=== PATIENT | male | born 1975 | race Caucasian/White ===

== ENCOUNTER 2018-08-09 10:48 | Emergency (ER) | payer MEDICARE, MEDICAID ==
[~2018-08-09] VITALS: Ht 182.9 cm; Wt 109.1 kg
[~2018-08-09 10:48] MED LIST: AMLO5TAB PO; CEPH250T PO; CETI10TA15 PO; CLON0.2T PO; HYDR2TAB28 PO; LOSA25TA96 PO; MORP60TA32 PO; OMEP20TA5 PO; PRAV80TA3 PO; PROM25TA14 PO; PROP40TA72 PO; PROP80TA4 PO
[2018-08-09] MEDS ORDERED: ondansetron/PF 4mg/2ml inj IV ONE (12:00)
[2018-08-09] MEDS ORDERED: morphine 4 MG/ML inj SYRINge IV ONE ×2 (12:00→15:25)
[2018-08-09] MEDS ORDERED: normal saline 1000ML IV soln IVB ONE ×2 (12:00→15:25)
[2018-08-09 12:17] LABS: BASOPHILS # (AUTO) 0.1 X10'3 (0-0.2); BASOPHILS % (AUTO) 0.4 % (0-1); EOSINOPHILS % (AUTO) 0.2 % (0-6); HEMATOCRIT 47.7 % (42.0-52.0); HEMOGLOBIN 16.5 g/dl (14.0-17.9); LYMPHOCYTES # (AUTO) 2.6 X10'3 (1.1-4.8); LYMPHOCYTES % (AUTO) 16.9 % (21-51); MEAN CORPUSCULAR HEMOGLOBIN 30.8 PG (27.0-31.0); MEAN CORPUSCULAR HGB CONC 34.6 g/dL (33.0-36.5); MEAN PLATELET VOLUME 11.4 FL (7.4-10.4); MONOCYTES # (AUTO) 0.7 X10'3 (0-0.9); MONOCYTES % (AUTO) 4.6 % (2-12); NEUTROPHILS # (AUTO) 11.9 X10'3 (1.8-7.7); NEUTROPHILS % (AUTO) 77.9 % (42-75); PLATELET COUNT 214 X10'3 (140-440); RED BLOOD COUNT 5.36 X10'6 (4.70-6.10); RED CELL DISTRIBUTION WIDTH 13.6 % (11.5-14.5); WHITE BLOOD COUNT 15.3 X10'3 (4.5-11.0)
[2018-08-09 12:24] LABS: ALANINE AMINOTRANSFERASE 44 U/L (12-78); ALBUMIN 4.6 G/DL (3.4-5.0); ALBUMIN/GLOBULIN RATIO 1.2 (1.1-1.5); ALKALINE PHOSPHATASE 36 IU/L (46-116); ANION GAP 13 (8-16); ASPARTATE AMINO TRANSFERASE 25 U/L (10-37); BILIRUBIN,TOTAL 0.6 MG/DL (0.1-1.0); BLOOD UREA NITROGEN 21 MG/DL (7-18); BUN/CREATININE RATIO 16.9 (5.4-32.0); CALCIUM 9.2 MG/DL (8.5-10.1); CHLORIDE 101 MMOL/L (99-107); CREATININE 1.24 MG/DL (0.60-1.10); GLUCOSE 135 MG/DL (70-104); SODIUM 138 MMOL/L (135-145); TOTAL CARBON DIOXIDE 24.5 MMOL/L (24-32); TOTAL PROTEIN 8.3 G/DL (6.4-8.2); eGFR 64 ML/MIN
[2018-08-09 12:37] LABS: LARGE PLATELETS FEW; PLATELET ESTIMATE NORMAL
[2018-08-09 13:03] LABS: LIPASE 4718 U/L (73-393)
[2018-08-09] MEDS ORDERED: iohexol 300mg/ml 100ml inj. ONE (13:19)
[2018-08-09 14:30] VITALS: BP 153/83
[2018-08-09] MEDS ORDERED: HYDR-4353 PO (16:37)
[2018-08-09] MEDS ORDERED: ONDA8TAB6 PO (16:37)
== END 2018-08-09 16:57 | disposition home or self-care (01) ==
LOC: ER 10:49
DX: K85.90 Acute pancreatitis without necrosis or infection, unspecified (principal); R11.2 Nausea with vomiting, unspecified; R91.1 Solitary pulmonary nodule; G43.909 Migraine, unspecified, not intractable, without status migrainosus; E78.00 Pure hypercholesterolemia, unspecified; I10 Essential (primary) hypertension; G89.29 Other chronic pain; Z88.8 Allergy status to other drugs, medicaments and biological substances; Z79.899 Other long term (current) drug therapy
CPT/HCPCS: 36415; 74177; 80053; 83690; 85025; 96361; 96374; 96375; 96376; 99284; J2270; J2405; J7030; Q9967

== ENCOUNTER 2019-04-21 14:10 | Emergency (ER) | payer MEDICARE, MEDICAID ==
[~2019-04-21] VITALS: Ht 182.9 cm; Wt 107.0 kg
[~2019-04-21 14:10] MED LIST changes: -CEPH250T PO; +ONDA8TAB6 PO
[2019-04-21 15:16] LABS: BASOPHILS # (AUTO) 0.1 X10'3 (0-0.2); BASOPHILS % (AUTO) 0.7 % (0-1); EOSINOPHILS # (AUTO) 0.1 X10'3 (0-0.9); EOSINOPHILS % (AUTO) 0.5 % (0-6); HEMATOCRIT 47.9 % (42.0-52.0); HEMOGLOBIN 16.6 g/dl (14.0-17.9); LYMPHOCYTES # (AUTO) 2.5 X10'3 (1.1-4.8); LYMPHOCYTES % (AUTO) 18.8 % (21-51); MEAN CORPUSCULAR HEMOGLOBIN 30.9 PG (27.0-31.0); MEAN CORPUSCULAR HGB CONC 34.7 g/dL (33.0-36.5); MEAN PLATELET VOLUME 10.8 FL (7.4-10.4); MONOCYTES # (AUTO) 1.3 X10'3 (0-0.9); MONOCYTES % (AUTO) 9.3 % (2-12); NEUTROPHILS # (AUTO) 9.5 X10'3 (1.8-7.7); NEUTROPHILS % (AUTO) 70.7 % (42-75); PLATELET COUNT 253 X10'3 (140-440); RED BLOOD COUNT 5.38 X10'6 (4.70-6.10); RED CELL DISTRIBUTION WIDTH 12.6 % (11.5-14.5); WHITE BLOOD COUNT 13.4 X10'3 (4.5-11.0)
[2019-04-21 15:24] LABS: CLARITY,URINE SLIGHTLY CLOUDY (Clear); COLOR,URINE YELLOW (Yellow); GLUCOSE, URINE NEGATIVE (Neg); KETONES,URINE 15 mg/dl (Neg); LEUKOCYTE ESTERASE ,URINE NEGATIVE (Neg); NITRITES, URINE NEGATIVE (Neg); OCCULT BLOOD,URINE NEGATIVE (Neg); PROTEIN,URINE NEGATIVE (Neg); UA COLLECTION TYPE CLN CATCH MIDSTREAM
[2019-04-21 15:27] LABS: ALANINE AMINOTRANSFERASE 20 U/L (12-78); ALBUMIN 4.2 G/DL (3.4-5.0); ALBUMIN/GLOBULIN RATIO 1.1 (1.1-1.5); ALKALINE PHOSPHATASE 47 IU/L (46-116); AMYLASE 45 U/L (25-115); ANION GAP 7 (8-16); ASPARTATE AMINO TRANSFERASE 16 U/L (10-37); BILIRUBIN,TOTAL 0.7 MG/DL (0.1-1.0); BLOOD UREA NITROGEN 17 MG/DL (7-18); BUN/CREATININE RATIO 11.3 (5.4-32.0); CALCIUM 9.7 MG/DL (8.5-10.1); CHLORIDE 102 MMOL/L (99-107); CREATININE 1.51 MG/DL (0.60-1.10); GLUCOSE 112 MG/DL (70-104); LIPASE 163 U/L (73-393); POTASSIUM 4.7 MMOL/L (3.5-5.1); SODIUM 135 MMOL/L (135-145); TOTAL CARBON DIOXIDE 25.9 MMOL/L (24-32); eGFR 51 ML/MIN
[2019-04-21 15:29] LABS: MUCUS STRANDS MODERATE /LPF (Neg); SQUAMOUS EPITHELIAL CELL,UR FEW /LPF (FEW)
[2019-04-21 15:30] LABS: BACTERIA,URINE 1+ /HPF (Neg); RBC,URINE 0-2 /HPF (0-2); WBC,URINE 0-4 /HPF (0-4)
[2019-04-21 16:36] LABS: LARGE PLATELETS FEW; PLATELET ESTIMATE NORMAL
[2019-04-21] MEDS ORDERED: normal saline 1000ML IV soln IVB ONE (17:20)
[2019-04-21] MEDS ORDERED: morphine 4 MG/ML inj SYRINge IV PRN (17:20)
[2019-04-21] MEDS ORDERED: ondansetron/PF 4mg/2ml inj IV ONE (17:20)
[2019-04-21 18:31] VITALS: BP 114/64
[2019-04-21] MEDS ORDERED: PANT-47 PO (19:05)
== END 2019-04-21 19:14 | disposition home or self-care (01) ==
LOC: ER 14:11
DX: R10.13 Epigastric pain (principal); R10.11 Right upper quadrant pain; R11.2 Nausea with vomiting, unspecified; E78.00 Pure hypercholesterolemia, unspecified; I10 Essential (primary) hypertension; G89.29 Other chronic pain; Z88.8 Allergy status to other drugs, medicaments and biological substances; Z79.899 Other long term (current) drug therapy
CPT/HCPCS: 36415; 76700; 80053; 81001; 82150; 83690; 85025; 96361; 96374; 96375; 99284; J2270; J2405; J7030

== ENCOUNTER 2019-07-28 10:24 | Emergency (ER) | payer MEDICARE, MEDICAID ==
[~2019-07-28] VITALS: Ht 185.4 cm; Wt 104.5 kg
[~2019-07-28 10:24] MED LIST changes: +PANT-47 PO
[2019-07-28] MEDS ORDERED: CLIN150C8 PO (11:50)
[2019-07-28 12:32] VITALS: BP 96/60
== END 2019-07-28 12:34 | disposition home or self-care (01) ==
LOC: ER 10:24
DX: J34.0 Abscess, furuncle and carbuncle of nose (principal); G43.909 Migraine, unspecified, not intractable, without status migrainosus; E78.00 Pure hypercholesterolemia, unspecified; I10 Essential (primary) hypertension; G89.29 Other chronic pain; Z88.8 Allergy status to other drugs, medicaments and biological substances; Z79.899 Other long term (current) drug therapy
CPT/HCPCS: 99283

== ENCOUNTER 2021-08-16 14:37 | Emergency (ER) | payer MEDICARE, MEDICAID ==
[~2021-08-16] VITALS: Ht 185.4 cm; Wt 104.5 kg
[~2021-08-16 14:37] MED LIST changes: +CLIN150C8 PO; +OMEP20TA43 PO; -OMEP20TA5 PO
[2021-08-16 14:59] VITALS: BP 172/111
[2021-08-16] MEDS ORDERED: TETR20SP PO (16:22)
== END 2021-08-16 16:33 | disposition home or self-care (01) ==
LOC: ER 14:38
DX: K12.0 Recurrent oral aphthae (principal); J02.9 Acute pharyngitis, unspecified; G43.909 Migraine, unspecified, not intractable, without status migrainosus; E78.00 Pure hypercholesterolemia, unspecified; I10 Essential (primary) hypertension; G89.29 Other chronic pain; Z87.19 Personal history of other diseases of the digestive system; Z88.8 Allergy status to other drugs, medicaments and biological substances; Z79.899 Other long term (current) drug therapy; Z79.2 Long term (current) use of antibiotics
CPT/HCPCS: 87081; 87880; 99283

== ENCOUNTER 2021-12-01 18:59 | Inpatient (IN) | payer MEDICARE, MEDICAID ==
[~2021-12-01] VITALS: Ht 182.9 cm; Wt 100.0 kg
[~2021-12-01 18:59] MED LIST changes: +TETR20SP PO
[2021-12-01] MEDS ORDERED: ringers solution, lacted 1,000 ML IV ONE (20:00)
[2021-12-01 20:16] LABS: BASOPHILS # (AUTO) 0.1 X10'3 (0-0.2); BASOPHILS % (AUTO) 0.7 % (0-1); EOSINOPHILS # (AUTO) 0.1 X10'3 (0-0.9); LYMPHOCYTES % (AUTO) 27.8 % (21-51)
[2021-12-01 20:17] LABS: EOSINOPHILS % (AUTO) 1.2 % (0-6); HEMATOCRIT 44.5 % (42.0-52.0); HEMOGLOBIN 14.9 g/dl (14.0-17.9); LYMPHOCYTES # (AUTO) 3.1 X10'3 (1.1-4.8); MEAN CORPUSCULAR HEMOGLOBIN 28.9 PG (27.0-31.0); MEAN CORPUSCULAR HGB CONC 33.6 g/dL (33.0-36.5); MEAN CORPUSCULAR VOLUME 86.1 FL (78-98); MEAN PLATELET VOLUME 9.8 FL (7.4-10.4); MONOCYTES # (AUTO) 1.2 X10'3 (0-0.9); MONOCYTES % (AUTO) 10.9 % (2-12); NEUTROPHILS # (AUTO) 6.5 X10'3 (1.8-7.7); NEUTROPHILS % (AUTO) 59.4 % (42-75); PLATELET COUNT 187 X10'3 (140-440); RED BLOOD COUNT 5.17 X10'6 (4.70-6.10)
[2021-12-01 20:33] LABS: ALANINE AMINOTRANSFERASE 33 U/L (12-78); ALBUMIN 4.2 G/DL (3.4-5.0); ALBUMIN/GLOBULIN RATIO 1.2 (1.1-1.5); ALKALINE PHOSPHATASE 47 IU/L (46-116); ANION GAP 12 (8-16); ASPARTATE AMINO TRANSFERASE 26 U/L (10-37); BILIRUBIN,TOTAL 0.5 MG/DL (0.1-1.0); BLOOD UREA NITROGEN 21 MG/DL (7-18); BUN/CREATININE RATIO 14.5 (5.4-32.0); CALCIUM 9.3 MG/DL (8.5-10.1); CHLORIDE 101 MMOL/L (99-107); CREATININE 1.45 MG/DL (0.60-1.10); GLUCOSE 105 MG/DL (70-104); MAGNESIUM 2.2 MG/DL (1.5-2.4); SODIUM 139 MMOL/L (135-145); TOTAL CARBON DIOXIDE 26.5 MMOL/L (24-32); TOTAL PROTEIN 7.8 G/DL (6.4-8.2); eGFR 53 ML/MIN
[2021-12-01 20:38] LABS: ETHANOL < 0.010 GM/DL (0.0-0.010)
[2021-12-01 20:47] LABS: CLARITY,URINE CLEAR (Clear); COLOR,URINE YELLOW (Yellow); GLUCOSE, URINE NEGATIVE (Neg); KETONES,URINE 40 mg/dl (Neg); LEUKOCYTE ESTERASE ,URINE NEGATIVE (Neg); NITRITES, URINE NEGATIVE (Neg); OCCULT BLOOD,URINE NEGATIVE (Neg); PH,URINE 5.5 (4.8-8.0); PROTEIN,URINE NEGATIVE (Neg); UROBILINOGEN,URINE 0.2 E.U/dL (0.2-1.0)
[2021-12-01 20:54] LABS: UA COLLECTION TYPE STRAIGHT CATH
[2021-12-01 21:00] LABS: URINE AMPHETAMINE SCREEN NEGATIVE (Neg); URINE BARBITUATE SCREEN NEGATIVE (Neg); URINE BENZODIAZEPINES SCREEN POSITIVE (Neg); URINE CANNABINOID SCREEN NEGATIVE (Neg); URINE COCAINE SCREEN NEGATIVE (Neg); URINE METHADONE SCREEN NEGATIVE (Neg); URINE OPIATE SCREEN NEGATIVE (Neg); URINE PHENCYCLIDINE SCREEN NEGATIVE (Neg)
[2021-12-01] MEDS ORDERED: EZET10TA6 PO (21:14)
[2021-12-01] MEDS ORDERED: CLON0.2T PO (21:14)
[2021-12-01] MEDS ORDERED: LISI-643 PO (21:14)
[2021-12-01] MEDS ORDERED: mag hydrox/Alum hydrox/simeth 30ml oral suspension PO PRN (22:15)
[2021-12-01] MEDS: normal saline 1000ml 1,000 ML IV SCH (23:09)
--- NOTE | 2021-12-02 02:00 | NUR ---
PT ARRIVED FROM ER AND HAS BEEN ORIENTED TO THE ROOM. SLOW TO ANSWER ANY QUESTIONS. VSS. RECEIVED REPORT FROM ОЛЬГА SAWYER PRIOR TO PT'S ARRIVAL.
[2021-12-02 02:04] VITALS: BP 123/85
[2021-12-02 06:00] VITALS: BP_SYST 128; BP_SYST 139; BP_DIAS 78; BP_DIAS 87
[2021-12-02 06:09] LABS: BASOPHILS # (AUTO) 0.1 X10'3 (0-0.2); BASOPHILS % (AUTO) 0.7 % (0-1); EOSINOPHILS # (AUTO) 0.2 X10'3 (0-0.9); EOSINOPHILS % (AUTO) 2.6 % (0-6); HEMATOCRIT 39.3 % (42.0-52.0); HEMOGLOBIN 13.1 g/dl (14.0-17.9); LYMPHOCYTES # (AUTO) 3.2 X10'3 (1.1-4.8); LYMPHOCYTES % (AUTO) 38.9 % (21-51); MEAN CORPUSCULAR HEMOGLOBIN 28.8 PG (27.0-31.0); MEAN CORPUSCULAR HGB CONC 33.4 g/dL (33.0-36.5); MEAN CORPUSCULAR VOLUME 86.3 FL (78-98); MEAN PLATELET VOLUME 10.3 FL (7.4-10.4); MONOCYTES # (AUTO) 0.9 X10'3 (0-0.9); MONOCYTES % (AUTO) 10.6 % (2-12); NEUTROPHILS # (AUTO) 3.8 X10'3 (1.8-7.7); NEUTROPHILS % (AUTO) 47.2 % (42-75); PLATELET COUNT 179 X10'3 (140-440); RED BLOOD COUNT 4.56 X10'6 (4.70-6.10); RED CELL DISTRIBUTION WIDTH 13.2 % (11.5-14.5); WHITE BLOOD COUNT 8.1 X10'3 (4.5-11.0)
[2021-12-02 06:12] LABS: ALANINE AMINOTRANSFERASE 23 U/L (12-78); ALBUMIN 3.4 G/DL (3.4-5.0); ALBUMIN/GLOBULIN RATIO 1.2 (1.1-1.5); ALKALINE PHOSPHATASE 41 IU/L (46-116); ANION GAP 6 (8-16); ASPARTATE AMINO TRANSFERASE 19 U/L (10-37); BILIRUBIN,TOTAL 0.4 MG/DL (0.1-1.0); BLOOD UREA NITROGEN 16 MG/DL (7-18); BUN/CREATININE RATIO 13.4 (5.4-32.0); CALCIUM 8.6 MG/DL (8.5-10.1); CHLORIDE 107 MMOL/L (99-107); CREATININE 1.19 MG/DL (0.60-1.10); GLUCOSE 82 MG/DL (70-104); POTASSIUM 3.6 MMOL/L (3.5-5.1); SODIUM 142 MMOL/L (135-145); TOTAL CARBON DIOXIDE 28.8 MMOL/L (24-32); TOTAL PROTEIN 6.3 G/DL (6.4-8.2); eGFR 66 ML/MIN
--- NOTE | 2021-12-02 06:40 | NUR ---
Problems reprioritized. Patient report given, questions answered & plan of care reviewed with ОЛЬГА ALVARADO.
[2021-12-02] MEDS: heparin, porcine 5000 units/ml vial SQ SCH ×2 (07:39→20:53)
[2021-12-02] MEDS: docusate sod 100mg capsule PO SCH ×2 (08:00→20:52)
[2021-12-02] MEDS: normal saline 1000ml 1,000 ML IV SCH ×3 (08:15→20:48)
--- NOTE | 2021-12-02 09:24 | NUR ---
ASKED PATIENT IF I COULD TAKE TO HIS MOTHER ABOUT HIM, HE STATED "NO" ASKED PATIENT IF SHE COULD VISIT HE STATED "NO" HIS MOTHER IS EDGARD PARNELL Addendum: 12/02/21 at 0943 by Shanna Cho RN Amended: Links added.
[2021-12-02 18:00] VITALS: BP 138/94
--- NOTE | 2021-12-02 18:43 | NUR ---
Problems reprioritized. Patient report given, questions answered & plan of care reviewed with Raisa ROLON.
[2021-12-02] MEDS: magnesium hydroxide 30ml (MOM) UD suspension PO PRN (20:48)
[2021-12-02] MEDS: propranolol 40mg tablet PO SCH (20:51)
[2021-12-02] MEDS: lisinopril 10 MG tablet PO SCH (20:52)
[2021-12-02] MEDS: cloNIDine 0.1 mg tablet PO SCH (20:52)
[2021-12-02 21:04] VITALS: BP 171/99
--- NOTE | 2021-12-02 21:12 | NUR ---
pt had yogurt and apple sauce. no signs of aspiration.
[2021-12-03] MEDS: normal saline 1000ml 1,000 ML IV SCH ×2 (04:15→17:58)
[2021-12-03 05:54] LABS: BASOPHILS # (AUTO) 0.1 X10'3 (0-0.2); BASOPHILS % (AUTO) 1.1 % (0-1); EOSINOPHILS # (AUTO) 0.2 X10'3 (0-0.9); EOSINOPHILS % (AUTO) 2.9 % (0-6); HEMATOCRIT 38.4 % (42.0-52.0); HEMOGLOBIN 12.9 g/dl (14.0-17.9); LYMPHOCYTES # (AUTO) 2.6 X10'3 (1.1-4.8); LYMPHOCYTES % (AUTO) 37.4 % (21-51); MEAN CORPUSCULAR HGB CONC 33.7 g/dL (33.0-36.5); MEAN CORPUSCULAR VOLUME 86.1 FL (78-98); MEAN PLATELET VOLUME 9.4 FL (7.4-10.4); MONOCYTES # (AUTO) 0.8 X10'3 (0-0.9); MONOCYTES % (AUTO) 10.8 % (2-12); NEUTROPHILS # (AUTO) 3.4 X10'3 (1.8-7.7); NEUTROPHILS % (AUTO) 47.8 % (42-75); PLATELET COUNT 166 X10'3 (140-440); RED BLOOD COUNT 4.46 X10'6 (4.70-6.10); RED CELL DISTRIBUTION WIDTH 13.1 % (11.5-14.5)
[2021-12-03 06:00] VITALS: BP 127/73
[2021-12-03 06:03] LABS: ALANINE AMINOTRANSFERASE 27 U/L (12-78); ALBUMIN 3.3 G/DL (3.4-5.0); ALBUMIN/GLOBULIN RATIO 1.2 (1.1-1.5); ALKALINE PHOSPHATASE 41 IU/L (46-116); ANION GAP 5 (8-16); ASPARTATE AMINO TRANSFERASE 19 U/L (10-37); BILIRUBIN,TOTAL 0.4 MG/DL (0.1-1.0); BLOOD UREA NITROGEN 13 MG/DL (7-18); BUN/CREATININE RATIO 10.8 (5.4-32.0); CALCIUM 8.3 MG/DL (8.5-10.1); CHLORIDE 110 MMOL/L (99-107); GLUCOSE 92 MG/DL (70-104); SODIUM 142 MMOL/L (135-145); TOTAL CARBON DIOXIDE 27.5 MMOL/L (24-32); TOTAL PROTEIN 6.1 G/DL (6.4-8.2); eGFR 65 ML/MIN
--- NOTE | 2021-12-03 06:31 | NUR ---
Problems reprioritized. Patient report given, questions answered & plan of care reviewed with umair Otero.
--- NOTE | 2021-12-03 06:44 | NUR ---
Patient in room [facility] 4020a. I have received report from Raisa ROLON and had the opportunity to ask questions and assume patient care.
[2021-12-03] MEDS ORDERED: amLODIPine 5mg tablet PO SCH (08:00)
[2021-12-03] MEDS: propranolol 40mg tablet PO SCH ×2 (08:00→19:38)
[2021-12-03] MEDS: lisinopril 10 MG tablet PO SCH ×2 (09:02→19:39)
[2021-12-03] MEDS: cetirizine 10mg tablet PO SCH (09:02)
[2021-12-03] MEDS: heparin, porcine 5000 units/ml vial SQ SCH ×2 (09:02→19:41)
[2021-12-03] MEDS: ezetimibe 10mg tablet PO SCH (09:03)
[2021-12-03] MEDS: docusate sod 100mg capsule PO SCH ×2 (09:03→19:38)
[2021-12-03] MEDS: pantoprazole 40mg Tablet.DR PO SCH (09:03)
[2021-12-03] MEDS: cloNIDine 0.1 mg tablet PO SCH ×2 (09:03→19:38)
[2021-12-03 10:00] VITALS: BP 146/88
[2021-12-03] MEDS: ondansetron/PF 4mg/2ml inj IV PRN (17:55)
[2021-12-03 18:00] VITALS: BP 125/86
--- NOTE | 2021-12-03 18:28 | NUR ---
Problems reprioritized. Patient report given, questions answered & plan of care reviewed with Raisa ROLON.
[2021-12-03 19:30] VITALS: BP 164/94
[2021-12-03 22:00] VITALS: BP 162/95
[2021-12-04] MEDS: normal saline 1000ml 1,000 ML IV SCH (03:05)
[2021-12-04] MEDS: ondansetron/PF 4mg/2ml inj IV PRN (04:54)
[2021-12-04 06:00] VITALS: BP 175/93
[2021-12-04] MEDS: magnesium hydroxide 30ml (MOM) UD suspension PO PRN (06:00)
[2021-12-04 06:03] LABS: BASOPHILS % (AUTO) 0.7 % (0-1); EOSINOPHILS # (AUTO) 0.1 X10'3 (0-0.9); EOSINOPHILS % (AUTO) 1.4 % (0-6); HEMOGLOBIN 12.7 g/dl (14.0-17.9); LYMPHOCYTES # (AUTO) 2.2 X10'3 (1.1-4.8); MEAN CORPUSCULAR HGB CONC 34.2 g/dL (33.0-36.5); MEAN CORPUSCULAR VOLUME 84.9 FL (78-98); MEAN PLATELET VOLUME 9.9 FL (7.4-10.4); MONOCYTES # (AUTO) 0.7 X10'3 (0-0.9); MONOCYTES % (AUTO) 9.3 % (2-12); NEUTROPHILS # (AUTO) 4.4 X10'3 (1.8-7.7); NEUTROPHILS % (AUTO) 58.6 % (42-75); PLATELET COUNT 173 X10'3 (140-440); RED BLOOD COUNT 4.36 X10'6 (4.70-6.10); WHITE BLOOD COUNT 7.4 X10'3 (4.5-11.0)
[2021-12-04 06:13] LABS: ALANINE AMINOTRANSFERASE 28 U/L (12-78); ALBUMIN 3.6 G/DL (3.4-5.0); ALBUMIN/GLOBULIN RATIO 1.2 (1.1-1.5); ALKALINE PHOSPHATASE 42 IU/L (46-116); ANION GAP 7 (8-16); ASPARTATE AMINO TRANSFERASE 19 U/L (10-37); BILIRUBIN,TOTAL 0.5 MG/DL (0.1-1.0); BLOOD UREA NITROGEN 7 MG/DL (7-18); BUN/CREATININE RATIO 6.2 (5.4-32.0); CALCIUM 8.9 MG/DL (8.5-10.1); CHLORIDE 109 MMOL/L (99-107); CREATININE 1.13 MG/DL (0.60-1.10); GLUCOSE 110 MG/DL (70-104); POTASSIUM 3.6 MMOL/L (3.5-5.1); SODIUM 142 MMOL/L (135-145); TOTAL CARBON DIOXIDE 25.8 MMOL/L (24-32); TOTAL PROTEIN 6.6 G/DL (6.4-8.2); eGFR 70 ML/MIN
--- NOTE | 2021-12-04 06:26 | NUR ---
Problems reprioritized. Patient report given, questions answered & plan of care reviewed with ОЛЬГА ALVARADO.
[2021-12-04] MEDS: pantoprazole 40mg Tablet.DR PO SCH (07:32)
[2021-12-04] MEDS: cetirizine 10mg tablet PO SCH (07:32)
[2021-12-04] MEDS: ezetimibe 10mg tablet PO SCH (07:32)
[2021-12-04] MEDS: propranolol 40mg tablet PO SCH (07:32)
[2021-12-04 07:33] VITALS: BP_SYST 179
[2021-12-04] MEDS: cloNIDine 0.1 mg tablet PO SCH (07:33)
[2021-12-04] MEDS: lisinopril 10 MG tablet PO SCH (07:33)
[2021-12-04] MEDS: docusate sod 100mg capsule PO SCH (07:34)
[2021-12-04] MEDS: heparin, porcine 5000 units/ml vial SQ SCH (07:35)
--- NOTE | 2021-12-04 08:37 | NUR ---
PAGER ID: [phone] MESSAGE: [phone] Dex Anne - Patient has been cleared by PT, walked a lot steadier, this am. And his mother is here, and will be the ride. Shanna [phone]
--- NOTE | 2021-12-04 08:57 | NUR ---
Mom at bedside. Dr. Todd in to see patient Addendum: 12/04/21 at 0857 by Shanna Cho RN Amended: Links added.
--- NOTE | 2021-12-04 09:25 | NUR ---
PAGER ID: [phone] MESSAGE: [id number] Maximo Anne Patient and mother requesting pain management information. Shanna [phone]
--- NOTE | 2021-12-04 09:54 | NUR ---
Patient and mother at discharge requesting pain management information. I have called the doctor, Ms. Smith and [facility] [facility] to get said info. I told the patient when I get some pamphlets or any information I will call [phone] and let them know.
--- NOTE | 2021-12-04 09:56 | NUR ---
patient discharged, IV taken out canula intact. Wheeled out with mother. see previous note Addendum: 12/04/21 at 0957 by Shanna Cho RN Amended: Links added.
--- NOTE | 2021-12-04 10:34 | NUR ---
Spoke with Sarah, she is going to call the patient regarding pain management programs. gave her phone number [phone]
--- NOTE | 2021-12-04 11:09 | NUR ---
Received call from RN about patient wanting resources. I called patient and left a message.
--- NOTE | 2021-12-04 11:33 | NUR ---
Patient called back in regards to substance use and wants resources for MAT clinics. I gave information on [facility] and [facility]. Patient will call me back if he has anymore questions.
== END 2021-12-04 09:52 | disposition home or self-care (01) | DRG 917 ==
LOC: ER 19:01 → ED HOLD 22:16 → ORTHO 4S 12-02 01:50
PROVIDERS: ADMIT Internal Medicine; ATTEND Family Medicine
DX: T40.411A Poisoning by fentanyl or fentanyl analogs, accidental (unintentional), initial encounter (principal); G92.8 Other toxic encephalopathy; M54.9 Dorsalgia, unspecified; E78.00 Pure hypercholesterolemia, unspecified; G89.29 Other chronic pain; I10 Essential (primary) hypertension; G43.909 Migraine, unspecified, not intractable, without status migrainosus; R26.2 Difficulty in walking, not elsewhere classified; Z88.8 Allergy status to other drugs, medicaments and biological substances; Z79.899 Other long term (current) drug therapy; Y92.89 Other specified places as the place of occurrence of the external cause; Z71.51 Drug abuse counseling and surveillance of drug abuser
CPT/HCPCS: 36415; 70450; 71045; 80053; 80305; 80320; 81003; 82948; 83605; 83735; 84145; 85025; 87040; 87081; 93005; 96360; 97116; 97161; 99285; A4349; C1758; G0378; J1644; J2405; J7030; J7120

== ENCOUNTER 2022-01-06 19:17 | Emergency (ER) | payer MEDICARE, MEDICAID ==
[~2022-01-06] VITALS: Ht 182.9 cm; Wt 113.6 kg
[~2022-01-06 19:17] MED LIST changes: -AMLO5TAB PO; -CLIN150C8 PO; +EZET10TA6 PO; -HYDR2TAB28 PO; +LISI-643 PO; -LOSA25TA96 PO; -MORP60TA32 PO; -ONDA8TAB6 PO; -PANT-47 PO; -PRAV80TA3 PO; -PROM25TA14 PO; -PROP40TA72 PO; -TETR20SP PO
[2022-01-06] MEDS ORDERED: ketorolac trometh. 30mg/ml inj. IM ONE (22:05)
[2022-01-06] MEDS ORDERED: CEPH-585 PO (22:14)
[2022-01-06] MEDS ORDERED: SULF1TAB45 PO (22:14)
[2022-01-06] MEDS ORDERED: cephalexin 250mg capsule PO ONE (22:15)
[2022-01-06] MEDS ORDERED: sulfamethoxazole/trimethoprim DS (800/160mg) tablet PO ONE (22:15)
[2022-01-06] MEDS ORDERED: apixaban 5mg tablet PO SCH (23:25)
[2022-01-06] MEDS ORDERED: APIX5TAB3 PO (23:26)
[2022-01-06] MEDS ORDERED: HYDR-3973 PO (23:30)
[2022-01-07 00:25] VITALS: BP 146/98
== END 2022-01-07 00:27 | disposition home or self-care (01) ==
LOC: ER 19:18
DX: I82.402 Acute embolism and thrombosis of unspecified deep veins of left lower extremity (principal); G43.909 Migraine, unspecified, not intractable, without status migrainosus; E78.00 Pure hypercholesterolemia, unspecified; I10 Essential (primary) hypertension; Z88.8 Allergy status to other drugs, medicaments and biological substances; Z79.899 Other long term (current) drug therapy
CPT/HCPCS: 93971; 96372; 99284; J1885